=== PATIENT | male | born 1965 | race Caucasian/White ===

== ENCOUNTER → 2018-06-26 | Outpatient (CLI) | payer OTHER ==
[2018-06-26 09:31] LABS: HEMATOCRIT 44.8 % (42.0-52.0); HEMOGLOBIN 15.2 gm/dL (14.0-18.0); MCH 29.8 pg (26.0-34.0); MCHC 33.8 g/dL (28.0-37.0); RBC 5.09 mil/uL (4.50-6.00); RDW 13.4 % (10.5-14.5); WBC 9.6 thou/uL (4.0-11.0)
[2018-06-26 09:50] LABS: ALBUMIN 4.4 g/dL (3.4-5.0); CALCIUM 9.6 mg/dL (8.5-10.1); CREATININE 1.3 mg/dL (0.7-1.3); POTASSIUM 4.4 mmol/L (3.5-5.1); TOTAL BILIRUBIN 0.9 mg/dL (<0.1-1.0); TOTAL PROTEIN 7.7 g/dL (6.4-8.2)
== END ==
LOC: CAT 08:59
PROVIDERS: Internal Medicine Cardiovascular Disease
DX: I48.91 Unspecified atrial fibrillation (principal)

== ENCOUNTER 2018-07-03 06:43 | Observation (INO) | payer OTHER ==
[~2018-07-03] VITALS: Ht 188 cm; Wt 84.4 kg
--- NOTE | ~2018-07-03 | D ---
[facility] [place] [address] DISCHARGE SUMMARY Name: TAYLOR MCKEON Room #: 212-P [facility] M..#: [id number] Admission: 07/03/18 Attend Phys: Yahir Jesus MD Discharge: 07/04/18 Date of : 65 Report #: [id number] THIS REPORT FOR: //name// CC: Yahir Jesus Daljit Rock DISCHARGE DIAGNOSIS: Paroxysmal atrial fibrillation. PROCEDURE PERFORMED: AFib ablation. HISTORY: The patient is a 52-year-old with a history of AFib, status post AFib ablation back [place] [address] French. At that time, he underwent isolation of the pulmonary veins, roof line creation, mitral line, tricuspid annulus line, SVC isolation and posterior line creation in the right atrium. He has had clinical recurrence of atrial fibrillation. He is here for repeat ablation. He underwent EP study today and was found to have reconnection of all the veins, which were then subsequently successfully isolated using the cryoablation balloon. Post-ablation, an EP study was performed and he was noninducible for any SVT, atrial flutter or atrial fibrillation, both on and off isoproterenol. The procedure was straightforward without any complications. HOSPITAL COURSE: He was monitored in the CCU overnight. He remained in sinus rhythm based on telemetry. On the day of discharge, he denied any chest pain or chest tightness. He denied any fevers or chills. He denied any shortness of breath. PHYSICAL EXAMINATION: HEART: Regular rate and rhythm with no murmurs, rubs, gallops. NECK: No elevated JVD. LUNGS: Clear bilaterally. ABDOMEN: Soft, nontender and bilateral groin showed no bruising or hematoma. As such, he was deemed stable for discharge home. Discharge instructions were reviewed and he will go home on Pradaxa 150 mg b.i.d., flecainide 50 b.i.d. and Toprol 12.5 daily. He will continue these medications for a period of 3 months. <ELECTRONICALLY SIGNED> By: Yahir Jesus MD 07/08/18 1548 [id number] Yahir Jesus MD /nt
--- NOTE | ~2018-07-03 | P ---
[facility] [place] [address] PROCEDURE REPORT Name: TAYLOR MCKEON Room #: 212-P [facility]#: [id number] Admission: 07/03/18 Attend Phys: Yahir Jesus MD Discharge: 07/04/18 Date of : 65 Report #: [id number] THIS REPORT FOR: //name// CC: Yahir Jesus Dajlit Bass DATE OF SERVICE: 07/03/2018 PREOPERATIVE DIAGNOSIS: Paroxysmal atrial fibrillation. POSTOPERATIVE DIAGNOSIS: Paroxysmal atrial fibrillation. HISTORY: The patient is a 52-year-old male who underwent AFib ablation back in [address] French. At that time, the patient underwent isolation of the pulmonary veins. There was creation of a roof line, creation of a mitral isthmus line, creation of a tricuspid line, posterior wall ablation of the right atrium and SVC ablation. The patient did very well until the past 6 months to a year where he has been having increased episodes of atrial fibrillation, especially with exercise. He recently underwent a stress test and during stress testing, he did go into atrial fibrillation with rapid ventricular response. He is here for repeat ablation. PROCEDURES PERFORMED: 1. AFib ablation, CPT code 74312. 2. Program stimulation and pacing after IV drug infusion, CPT code 34330. 3. 3D mapping EP, CPT code 45173. 4. Intracardiac echo, CPT code 46938. ANESTHESIA: The patient underwent general anesthesia with no anesthesia related complications. DESCRIPTION OF PROCEDURE: The patient underwent informed consent. We discussed the details of the procedure including the risk, which include, but not limited to bleeding, vascular damage, stroke, UT as well as cardiac perforation. He understood these risks and was willing to proceed. The patient was brought to the EP laboratory in a fasting and sedated state and prepped and draped in a sterile fashion. I obtained access to the right femoral vein x 3 and the left femoral vein x 1. In the right femoral vein, I placed an 8, 9 and 7-Sinhala short sheath. In the left femoral vein, I placed a 5-Sinhala short sheath, all using the modified Seldinger technique. Next, under fluoroscopy, I placed a decapolar catheter easily in the coronary sinus and an ice catheter into the right atrium. At baseline, the patient was in sinus rhythm with sinus cycle length of 1235 milliseconds, AK interval 185 milliseconds, QRS duration 95 milliseconds, QT [facility] [address] [place] [address] PROCEDURE REPORT Name: TAYLOR MCKEON Room #: 212-P DIS [facility]#: [id number] Admission: 07/03/18 Attend Phys: Yahir Jesus MD Discharge: 07/04/18 Date of : 65 Report #: [id number] interval 455 milliseconds. Next, using intracardiac ultrasound, I verified that there were two left and two right pulmonary veins. Using [employer], we created a detailed 3D geometry of the left atrium and then we merged this with the cardiac CT scan, which have we obtained. Next, the patient was systemically heparinized and a transseptal was performed using an SL1 sheath and a [place] needle. It took me three attempts to get into the perfect location for transseptal, but once there, we came on with the [place] needle and easily crossed into the left atrium with the SL1 sheath. Next, using a Lasso catheter, I created a 3D geometry of the left atrium and we created a voltage map, which demonstrated that all four pulmonary veins were reconnected. There was extensive reconnection of all the pulmonary veins. On the voltage map, there was evidence that there had been an attempted roof line creation. I exchanged the SL1 sheath for the cryo sheath and the cryoablation balloon and placed this into the left atrium. I first started by isolating the left superior pulmonary vein. I performed two 4-minute freezes in this vein. The vein isolated during the first freeze within 60 seconds. I then turned my attention to the left inferior pulmonary vein. I performed three 4-minute freezes in this vein. The vein appeared to isolate during the first freeze, the max temperatures were -35 degrees. The second freeze, the maximal minus temperatures were -40 degrees and then the fourth freeze, I performed more of an inferior freeze to take care of some of the electrograms located below the vein to widen out the area of ablation. I then turned my attention to the right superior pulmonary vein. I performed a 4-minute freeze and it appeared that the vein had mostly isolated, but there was still a slight area of connection inferiorly. I performed a second 4-minute freeze and again the temps were not very good and the vein remained isolated. I then performed a third freeze and pulled the catheter down to the inferior aspect of the vessel and this time, the temperatures were much better and we obtained isolation of the vein within 60 seconds. At around 90 seconds, I started noticing that the phrenic was starting to weaken so we came off and double tapped the balloon. We monitored for a period of time and the phrenic nerve return to full strength. I then turned my attention to the right inferior pulmonary vein. This vein underwent a 4-minute freeze and the vein isolated within 30 seconds. The maximum negative temperature was -46 degrees in this vein. There were no phrenic nerve issues with the right inferior pulmonary vein. Next, I removed the cryo balloon and I interrogated all four pulmonary veins and created a detailed voltage map. This voltage map demonstrated that we had created a wide circumferential ablation of all four pulmonary veins. I did recheck the phrenic nerve and it had returned to 100% strength. POST-ABLATION TESTING: Post-ablation, we decided to perform an EP study. AV block was noted at 440 milliseconds. AV kendra ERP was noted at 400 milliseconds with a [address] cycle length. Atrial burst pacing was performed down to 250 milliseconds and I did not induce any AFib or atrial flutter. Next, I initiated isoproterenol at 1 mcg per minute. We performed [facility] [address] [place] [address] PROCEDURE REPORT Name: TAYLOR MCKEON Room #: 212-P [facility]..#: [id number] Admission: 07/03/18 Attend Phys: Yahir Jesus MD Discharge: 07/04/18 Date of : 65 Report #: [id number] atrial pacing from the left atrium via the coronary sinus and AV block was noted at 400 milliseconds. Isoproterenol was increased to 2 mcg per minute and AV block was noted at 340 milliseconds, atrial ERP was noted at 230 milliseconds at a [address] cycle length. I performed double atrial extrastimuli as well and I did not induce any AFib or atrial flutter. I then increased isoproterenol up to 4 mcg per minute as the patient would frequently have arrhythmias during levels of exercise. On isoproterenol 4 mcg per minute, he was noted to have lowering of his blood pressure, so we did titrate up any more, AV block was noted to be less than 300 milliseconds. As such, the procedure was concluded. Post-ablation, the patient was in sinus rhythm with a sinus cycle length of 800 milliseconds, AK interval 155 milliseconds, QRS duration 90 milliseconds, QT interval 445 milliseconds. As such, using intracardiac ultrasound, I verified that there was no pericardial effusion. Sheaths were pulled to the right atrium. Catheters were removed. The patient received systemic protamine and once ACT was within acceptable range, all sheaths were pulled and hemostasis was obtained. The patient awoke neurologically and hemodynamically intact. No complications and no significant bleeding. CONCLUSIONS: 1. Successful AFib ablation with isolation of the 4 pulmonary veins. 2. Normal EP study with no inducible SVT, atrial fibrillation or atrial flutter on or off isoproterenol. <ELECTRONICALLY SIGNED> By: Yahir Jesus MD 07/08/18 1548 1416 [id number] Yahir Jesus MD /nt
[2018-07-03] MEDS ORDERED: PRADAXA75 MG PO (07:15)
[2018-07-03 07:16] VITALS: BP 126/87
[2018-07-03 07:18] LABS: ABSOLUTE NEUTROPHILS 4.2 thou/uL (1.4-8.2); EOSINOPHILS 3.2 % (0.0-3.0); HEMATOCRIT 42.3 % (42.0-52.0); HEMOGLOBIN 14.2 gm/dL (14.0-18.0); LYMPHOCYTES 39.9 % (24.0-44.0); MCH 29.6 pg (26.0-34.0); MCHC 33.6 g/dL (28.0-37.0); MCV 88.4 fL (80.0-100.0); MONOCYTES 7.2 % (1.0-8.0); POLYS 48.7 % (36.0-66.0); RBC 4.79 mil/uL (4.50-6.00); RDW 13.5 % (10.5-14.5); WBC 8.5 thou/uL (4.0-11.0)
[2018-07-03 07:33] LABS: APTT 37.6 Seconds (24.5-32.8); INR 1.1; PROTIME 11.1 Seconds (9.3-11.4)
[2018-07-03 07:40] LABS: ALBUMIN 3.9 g/dL (3.4-5.0); CREATININE 1.2 mg/dL (0.7-1.3); TOTAL BILIRUBIN 0.5 mg/dL (<0.1-1.0); TOTAL PROTEIN 7.1 g/dL (6.4-8.2)
[2018-07-03 07:42] LABS: PLATELET COUNT 166 thou/uL (150-400)
[2018-07-03 07:43] LABS: LARGE PLATELETS RARE
[2018-07-03 14:10] VITALS: BP 136/93
[2018-07-03 14:30] VITALS: BP 136/93
[2018-07-03 19:26] VITALS: BP 123/64
[2018-07-03 23:17] VITALS: BP 120/71
[2018-07-04 03:24] VITALS: BP 111/74
[2018-07-04 08:15] VITALS: BP 113/71
[2018-07-04] MEDS ORDERED: PRADAXA150 MG PO (08:47)
[2018-07-04] MEDS ORDERED: METOPROLOL SUCC25 M1 PO (08:48)
[2018-07-04] MEDS ORDERED: FLECAINIDE ACET50 M2 PO (08:48)
[2018-07-04 09:35] VITALS: BP 111/74
[2018-07-04 11:11] VITALS: BP 111/74
== END 2018-07-04 10:30 | disposition home or self-care (01) ==
LOC: CATH 06:43 → 2N 14:38 → CATH 15:00 → ENTRNSPT 07-04 10:20 → 2N 07-04 10:30
PROVIDERS: Internal Medicine Cardiovascular Disease
DX: I48.0 Paroxysmal atrial fibrillation (principal)
CPT/HCPCS: 62110; 62900; 65020; 65040; 70005